=== PATIENT | female | born 1990 | race Caucasian/White ===

== ENCOUNTER 2020-09-28 14:10 | Emergency (ER) | payer OTHER ==
[2020-09-28 14:40] VITALS: BMI 38.9
[2020-09-28 15:42] LABS: PH,URINE 6.5 (5.0-8.0); URINE APPEARANCE CLEAR; URINE BILIRUBIN NEGATIVE (NEGATIVE); URINE COLOR YELLOW; URINE GLUCOSE (UA) NEGATIVE (NEGATIVE); URINE KETONE TRACE (NEGATIVE); URINE LEUK ESTERASE NEGATIVE (NEGATIVE); URINE NITRITE NEGATIVE (NEGATIVE); URINE PROTEIN NEGATIVE (NEGATIVE)
[2020-09-28 15:46] LABS: BASO % 0.3 % (0-2.0); EOS % 0.2 % (0-4.5); HEMATOCRIT 34.7 % (32.4-45.2); HEMOGLOBIN 11.3 GM/dL (10.7-15.3); LYMPH % 9.6 % (8-40); MCH 27.8 pg (25.7-33.7); MCHC 32.6 g/dl (32.0-36.0); MEAN CELL VOLUME 85.2 fl (80-96); MEAN PLT VOLUME 8.3 fl (7.5-11.1); MONO % 2.5 % (3.8-10.2); NEUT % 87.4 % (42.8-82.8); PLATELET COUNT 319 K/MM3 (134-434); RBC 4.07 M/mm3 (3.60-5.2); RDW 14.9 % (11.6-15.6); WHITE BLOOD COUNT 13.9 K/mm3 (4.0-10.0)
[2020-09-28 16:03] LABS: INR 1.11 (0.83-1.09); PROTHROMBIN TIME (PATIENT) 13.4 SEC (9.7-13.0)
[2020-09-28 16:04] LABS: CHLORIDE 105 mmol/L (98-107); POTASSIUM 4.1 mmol/L (3.5-5.1); SODIUM 138 mmol/L (136-145)
[2020-09-28 16:06] LABS: ALBUMIN 3.4 g/dl (3.4-5.0); ANION GAP 9 MMOL/L (8-16); CO2 24 mmol/L (21-32); LIPASE 138 U/L (73-393)
[2020-09-28 16:07] LABS: BLOOD UREA NITROGEN 5.5 mg/dL (7-18); GLUCOSE,RANDOM 77 mg/dL (74-106)
[2020-09-28 16:09] LABS: SGOT/AST 13 U/L (15-37); SGPT/ALT 24 U/L (13-61)
[2020-09-28 16:10] LABS: CREATININE 0.5 mg/dL (0.55-1.3)
[2020-09-28 16:11] LABS: ALK PHOS 122 U/L (45-117); BILIRUBIN,TOTAL 0.2 mg/dL (0.2-1); TOT PROT 7.4 g/dl (6.4-8.2)
[2020-09-28 19:16] VITALS: BP 107/67; PULSE 96; TEMP 98
== END 2020-09-28 18:45 | disposition home or self-care (01) ==
LOC: JER 14:10
DX: K80.20 Calculus of gallbladder without cholecystitis without obstruction (principal)
CPT/HCPCS: 36415; 76705-TC; 76801-TC; 80053; 81003; 82550; 83690; 84484; 85025; 85610; 87086; 99285-25

== ENCOUNTER 2022-01-30 10:07 | Observation (INO) | payer BC, OTHER ==
[2022-01-30 10:16] VITALS: BMI 40.7
[2022-01-30] MEDS ORDERED: SODIUM CHLORIDE 0.9% 500 ML INFUS.BAG IV ONE (11:35)
[2022-01-30] MEDS ORDERED: ONDANSETRON 4 MG/2 ML VIAL IVPUSH ONE (11:35)
[2022-01-30] MEDS ORDERED: morphine CARPU-JECT 4 MG/1 ML DISP.SYRIN IVPUSH ONE (11:35)
[2022-01-30] MEDS ORDERED: ONDANSETRON 4 MG/2 ML VIAL ONE (12:11)
[2022-01-30 13:17] LABS: BASO % 0.4 % (0-2.0); EOS % 0.7 % (0-4.5); HEMATOCRIT 34.6 % (32.4-45.2); LYMPH % 20.7 % (8-40); MCH 24.5 pg (25.7-33.7); MCHC 31.8 g/dl (32.0-36.0); MEAN CELL VOLUME 77.2 fl (80-96); MONO % 4.7 % (3.8-10.2); NEUT % 73.5 % (42.8-82.8); PLATELET COUNT 384 10^3/uL (134-434); RBC 4.48 M/mm3 (3.60-5.2); RDW 16.7 % (11.6-15.6)
[2022-01-30 13:24] LABS: INR 1.18 (0.83-1.09); PROTHROMBIN TIME (PATIENT) 13.6 SEC (9.7-13.0)
[2022-01-30 13:27] LABS: ACTIVATED PTT 37.8 SECONDS (25.2-36.5)
[2022-01-30] MEDS ORDERED: ACETAMINOPHEN 1000 MG/100 ML BAG IVPB ONE (13:38)
[2022-01-30 13:41] LABS: CALCIUM 8.9 mg/dL (8.5-10.1)
[2022-01-30] MEDS ORDERED: ACETAMINOPHEN 1000 MG/100 ML BAG IVPB PRN (13:41)
[2022-01-30 13:42] LABS: BLOOD UREA NITROGEN 10.2 mg/dL (7-18); MAGNESIUM 2.2 mg/dL (1.8-2.4)
[2022-01-30 13:45] LABS: CREATININE 0.8 mg/dL (0.55-1.3)
[2022-01-30 13:46] LABS: TOT PROT 8.2 g/dl (6.4-8.2)
[2022-01-30 13:59] LABS: BILIRUBIN,TOTAL 0.4 mg/dL (0.2-1)
[2022-01-30] MEDS ORDERED: ONDANSETRON 4 MG/2 ML VIAL IVPUSH PRN (14:34)
[2022-01-30 17:24] LABS: PH,URINE 5.5 (5.0-8.0); URINE APPEARANCE CLEAR; URINE BILIRUBIN NEGATIVE (NEGATIVE); URINE COLOR YELLOW; URINE GLUCOSE (UA) NEGATIVE (NEGATIVE); URINE KETONE NEGATIVE (NEGATIVE); URINE LEUK ESTERASE NEGATIVE (NEGATIVE); URINE NITRITE NEGATIVE (NEGATIVE); URINE PROTEIN NEGATIVE (NEGATIVE)
[2022-01-30] MEDS: CEFTRIAXONE 1 GM in DEXTROSE 5%-WATER - 50 ML IVPB SCH (18:01)
[2022-01-30] MEDS ORDERED: PIPERACILLIN/TAZOB 3.375 GM 3.375 GM/50 ML BAG IVPB ONE (18:03)
[2022-01-30] MEDS ORDERED: CEFTRIAXONE 1 GM/50 ML BAG ONE (18:04)
[2022-01-31] MEDS ORDERED: cefTRIAXone SODIUM 1 GM VIAL ONE (09:47)
[2022-01-31] MEDS ORDERED: DEXTROSE 5%-WATER - 50 ML IVPB ONE (09:47)
[2022-01-31] MEDS: CEFTRIAXONE 1 GM in DEXTROSE 5%-WATER - 50 ML IVPB SCH (09:48)
[2022-01-31 11:37] LABS: BASO % 0.6 % (0-2.0); EOS % 0.5 % (0-4.5); HEMOGLOBIN 10.9 GM/dL (10.7-15.3); LYMPH % 17.2 % (8-40); MCH 24.8 pg (25.7-33.7); MCHC 31.9 g/dl (32.0-36.0); MEAN CELL VOLUME 77.6 fl (80-96); MEAN PLT VOLUME 7.8 fl (7.5-11.1); MONO % 4.6 % (3.8-10.2); NEUT % 77.1 % (42.8-82.8); PLATELET COUNT 374 10^3/uL (134-434); RBC 4.38 M/mm3 (3.60-5.2); RDW 16.3 % (11.6-15.6); RETICULOCYTES 1.18 % (0.5-1.5); WHITE BLOOD COUNT 6.1 K/mm3 (4.0-10.0)
[2022-01-31 11:53] LABS: CALCIUM 8.6 mg/dL (8.5-10.1)
[2022-01-31 11:54] LABS: ALBUMIN 3.6 g/dl (3.4-5.0); BLOOD UREA NITROGEN 6.1 mg/dL (7-18)
[2022-01-31 11:57] LABS: CREATININE 0.7 mg/dL (0.55-1.3)
[2022-01-31 11:58] LABS: TOT PROT 7.5 g/dl (6.4-8.2)
[2022-01-31 11:59] LABS: BILIRUBIN,TOTAL 1.6 mg/dL (0.2-1)
[2022-01-31] MEDS ORDERED: DEXAMETHASONE SOD PHOSPHATE 4 MG/1 ML VIAL ONE (13:23)
[2022-01-31] MEDS ORDERED: ONDANSETRON 4 MG/2 ML VIAL ONE (13:23)
[2022-01-31] MEDS ORDERED: LIDOCAINE HCL/PF 2% SDV 5ML VIAL ONE (13:23)
[2022-01-31] MEDS ORDERED: PROPOFOL 20 ML ONE (13:24)
[2022-01-31] MEDS ORDERED: ROCURONIUM BROMIDE 50 MG/5 ML SYRINGE ONE (13:24)
[2022-01-31] MEDS ORDERED: MIDAZOLAM HCL 2 MG/2 ML SINGLE DOSE VIAL ONE (13:24)
[2022-01-31] MEDS ORDERED: BUPIVACAINE HCL/PF 0.5% (5MG/ML) 10 ML VIAL ONE (13:25)
[2022-01-31] MEDS ORDERED: BENZOIN/ALOE VERA/STORAX/TOLU 58 ML BOTTLE ONE (13:26)
[2022-01-31] MEDS ORDERED: BUPIVACAINE HCL/PF 0.5% (5MG/ML) 10 ML VIAL NR ONE ×2 (14:22)
[2022-01-31] MEDS ORDERED: NEOSTIGMINE METHYLSULFATE 0.5 MG/1 ML - 10 ML MDV ONE (15:18)
[2022-01-31] MEDS ORDERED: GLYCOPYRROLATE 0.2 MG/1 ML VIAL ONE (15:19)
[2022-01-31] MEDS ORDERED: KETOROLAC TROMETHAMINE 30 MG/1 ML VIAL ONE (15:19)
[2022-01-31] MEDS ORDERED: ONDANSETRON 4 MG/2 ML VIAL IVPUSH PRN ×3 (15:31→15:51)
[2022-01-31] MEDS ORDERED: oxyCODONE HCL 5 MG TABLET PO PRN ×2 (15:31→16:01)
[2022-01-31] MEDS ORDERED: LACTATED RINGERS SOLUTION 1,000 ML IV SCH (15:45)
[2022-01-31] MEDS ORDERED: ACETAMINOPHEN 325 MG TABLET (FP) PO PRN (15:59)
[2022-01-31] MEDS: LACTATED RINGERS SOLUTION 1,000 ML IV SCH (17:20)
[2022-01-31] MEDS: DOCUSATE SODIUM 100 MG CAPSULE (FP) PO SCH (17:21)
[2022-01-31] MEDS ORDERED: IBUPROFEN 600 MG TABLET (FP) PO PRN (22:00)
[2022-02-01] MEDS: DOCUSATE SODIUM 100 MG CAPSULE (FP) PO SCH ×2 (00:22→10:28)
[2022-02-01] MEDS: oxyCODONE HCL 5 MG TABLET PO PRN ×2 (00:22→06:20)
[2022-02-01] MEDS: LACTATED RINGERS SOLUTION 1,000 ML IV SCH (05:53)
[2022-02-01 08:33] LABS: BASO % 0.1 % (0-2.0); EOS % 0.1 % (0-4.5); HEMATOCRIT 30.5 % (32.4-45.2); MCH 25.4 pg (25.7-33.7); MCHC 32.7 g/dl (32.0-36.0); MEAN CELL VOLUME 77.7 fl (80-96); MEAN PLT VOLUME 7.6 fl (7.5-11.1); MONO % 4.3 % (3.8-10.2); NEUT % 83.5 % (42.8-82.8); PLATELET COUNT 351 10^3/uL (134-434); RBC 3.92 M/mm3 (3.60-5.2); RDW 15.9 % (11.6-15.6); WHITE BLOOD COUNT 10.9 K/mm3 (4.0-10.0)
[2022-02-01 08:50] LABS: BLOOD UREA NITROGEN 9.7 mg/dL (7-18); CALCIUM 8.5 mg/dL (8.5-10.1)
[2022-02-01 08:51] LABS: ALBUMIN 3.2 g/dl (3.4-5.0)
[2022-02-01 08:53] LABS: CREATININE 0.8 mg/dL (0.55-1.3)
[2022-02-01 08:54] LABS: BILIRUBIN,TOTAL 0.8 mg/dL (0.2-1)
[2022-02-01 08:55] LABS: TOT PROT 6.8 g/dl (6.4-8.2)
[2022-02-01 14:16] VITALS: BP 108/43; PULSE 73; TEMP 98.1
== END 2022-02-01 16:40 | disposition home or self-care (01) ==
LOC: JER 10:07 → JERBED 12:26 → J6S 22:45
PROVIDERS: ADMIT Internal Medicine; ATTEND Internal Medicine
PROC: 3E033NZ Introduction of Analgesics, Hypnotics, Sedatives into Peripheral Vein, Percutaneous Approach (ICD-10-PCS; principal; 2022-01-30)
PROC: 3E03329 Introduction of Other Anti-infective into Peripheral Vein, Percutaneous Approach (ICD-10-PCS; 2022-01-30)
PROC: 3E033NZ Introduction of Analgesics, Hypnotics, Sedatives into Peripheral Vein, Percutaneous Approach (ICD-10-PCS; 2022-01-30)
PROC: 3E0337Z Introduction of Electrolytic and Water Balance Substance into Peripheral Vein, Percutaneous Approach (ICD-10-PCS; 2022-01-30)
PROC: 3E033GC Introduction of Other Therapeutic Substance into Peripheral Vein, Percutaneous Approach (ICD-10-PCS; 2022-01-30)
PROC: 0FT44ZZ Resection of Gallbladder, Percutaneous Endoscopic Approach (ICD-10-PCS; 2022-01-30)
DX: K80.10 Calculus of gallbladder with chronic cholecystitis without obstruction (principal); E66.01 Morbid (severe) obesity due to excess calories; Z68.41 Body mass index [BMI] 40.0-44.9, adult
CPT/HCPCS: 36415; 71045-TC-FY; 76705-TC; 80053; 81003; 82728; 83540; 83550; 83605; 83690; 83735; 84703; 85025; 85045; 85610; 85730; 86850; 86900; 86901; 87086; 88304-TC; 93005; 93010; 94760; 96361; 96365; 96367; 96375; 96376; 99285-25; C9803-CS; G0378; U0003; U0005

== ENCOUNTER 2022-02-04 19:35 | Inpatient (IN) | payer BC ==
[2022-02-04 19:55] VITALS: BMI 40.7
[2022-02-04] MEDS ORDERED: SODIUM CHLORIDE 0.9% 500 ML INFUS.BAG IV ONE (20:40)
[2022-02-04] MEDS ORDERED: ACETAMINOPHEN 1000 MG/100 ML BAG IVPB ONE (20:40)
[2022-02-04] MEDS ORDERED: METOCLOPRAMIDE HCL INJECTION 10 MG/2 ML VIAL IVPB ONE (20:40)
[2022-02-04] MEDS ORDERED: ACETAMINOPHEN INJECTION 100 ML IVPB ONE (20:49)
[2022-02-04] MEDS ORDERED: METOCLOPRAMIDE HCL INJECTION 10 MG/2 ML VIAL ONE (20:49)
[2022-02-04 21:58] LABS: BASO % 0.6 % (0-2.0); EOS % 1.3 % (0-4.5); HEMATOCRIT 33.3 % (32.4-45.2); HEMOGLOBIN 11.1 GM/dL (10.7-15.3); LYMPH % 19.4 % (8-40); MCH 25.8 pg (25.7-33.7); MCHC 33.3 g/dl (32.0-36.0); MEAN CELL VOLUME 77.5 fl (80-96); MEAN PLT VOLUME 7.2 fl (7.5-11.1); MONO % 4.4 % (3.8-10.2); NEUT % 74.3 % (42.8-82.8); PLATELET COUNT 408 10^3/uL (134-434); RDW 16.9 % (11.6-15.6); WHITE BLOOD COUNT 6.9 K/mm3 (4.0-10.0)
[2022-02-04 22:34] LABS: BLOOD UREA NITROGEN 5.3 mg/dL (7-18); CALCIUM 9.5 mg/dL (8.5-10.1)
[2022-02-04 22:37] LABS: CREATININE 0.7 mg/dL (0.55-1.3)
[2022-02-04 22:39] LABS: BILIRUBIN,TOTAL 3.7 mg/dL (0.2-1); TOT PROT 8.4 g/dl (6.4-8.2)
[2022-02-04 22:44] LABS: ALBUMIN 4.2 g/dl (3.4-5.0)
[2022-02-04 23:17] LABS: BILIRUBIN,DIRECT 3.3 mg/dL (0.0-0.2)
[2022-02-04] MEDS ORDERED: CEFTRIAXONE 2,000 MG in DEXTROSE 5%-WATER - 50 ML IVPB ONE (23:57)
[2022-02-05] MEDS ORDERED: CEFTRIAXONE 2 GM/100 ML BAG IVPB ONE (00:10)
[2022-02-05 00:55] LABS: INR 1.15 (0.83-1.09); PROTHROMBIN TIME (PATIENT) 13.2 SEC (9.7-13.0)
[2022-02-05 00:58] LABS: ACTIVATED PTT 45.4 SECONDS (25.2-36.5)
[2022-02-05] MEDS: SODIUM CHLORIDE 1,000 ML IV SCH ×2 (02:15→18:35)
[2022-02-05 08:51] LABS: BASO % 0.5 % (0-2.0); EOS % 1.3 % (0-4.5); HEMATOCRIT 31.8 % (32.4-45.2); HEMOGLOBIN 10.2 GM/dL (10.7-15.3); LYMPH % 18.9 % (8-40); MCH 25.4 pg (25.7-33.7); MCHC 32.1 g/dl (32.0-36.0); MEAN PLT VOLUME 7.9 fl (7.5-11.1); MONO % 5.5 % (3.8-10.2); NEUT % 73.8 % (42.8-82.8); PLATELET COUNT 377 10^3/uL (134-434); RBC 4.02 M/mm3 (3.60-5.2); RDW 16.6 % (11.6-15.6); WHITE BLOOD COUNT 5.1 K/mm3 (4.0-10.0)
[2022-02-05 09:08] LABS: CALCIUM 8.9 mg/dL (8.5-10.1)
[2022-02-05 09:09] LABS: BLOOD UREA NITROGEN 3.2 mg/dL (7-18); MAGNESIUM 2.3 mg/dL (1.8-2.4)
[2022-02-05 09:12] LABS: CREATININE 0.6 mg/dL (0.55-1.3)
[2022-02-05 09:13] LABS: ACTIVATED PTT 43.1 SECONDS (25.2-36.5); BILIRUBIN,TOTAL 3.9 mg/dL (0.2-1); INR 1.13 (0.83-1.09); TOT PROT 6.7 g/dl (6.4-8.2)
[2022-02-05 09:20] LABS: ALBUMIN 3.3 g/dl (3.4-5.0)
[2022-02-05] MEDS: METOCLOPRAMIDE HCL INJECTION 10 MG/2 ML VIAL IVPUSH PRN ×3 (10:35→22:12)
[2022-02-05] MEDS ORDERED: MELATONIN 5 MG TABLETS PO PRN (16:19)
[2022-02-06] MEDS: SODIUM CHLORIDE 1,000 ML IV SCH (02:21)
[2022-02-06 08:12] LABS: BASO % 0.5 % (0-2.0); EOS % 0.3 % (0-4.5); HEMOGLOBIN 10.7 GM/dL (10.7-15.3); LYMPH % 11.6 % (8-40); MCH 25.3 pg (25.7-33.7); MCHC 32.3 g/dl (32.0-36.0); MEAN CELL VOLUME 78.5 fl (80-96); MEAN PLT VOLUME 7.9 fl (7.5-11.1); MONO % 3.2 % (3.8-10.2); NEUT % 84.4 % (42.8-82.8); PLATELET COUNT 414 10^3/uL (134-434); RDW 16.8 % (11.6-15.6); WHITE BLOOD COUNT 9.5 K/mm3 (4.0-10.0)
[2022-02-06 08:21] LABS: ALBUMIN 3.7 g/dl (3.4-5.0); CALCIUM 8.9 mg/dL (8.5-10.1)
[2022-02-06 08:22] LABS: BLOOD UREA NITROGEN 7.9 mg/dL (7-18)
[2022-02-06 08:25] LABS: CREATININE 0.5 mg/dL (0.55-1.3)
[2022-02-06 08:26] LABS: BILIRUBIN,TOTAL 1.4 mg/dL (0.2-1); TOT PROT 7.6 g/dl (6.4-8.2)
[2022-02-06] MEDS ORDERED: cefTRIAXone SODIUM 1 GM VIAL ONE ×2 (09:06→09:27)
[2022-02-06] MEDS ORDERED: DEXTROSE 5%-WATER - 50 ML IVPB ONE ×2 (09:07→09:27)
[2022-02-06] MEDS: FERROUS SO4 325 MG TABLET (FP) PO SCH (09:10)
[2022-02-06] MEDS: CEFTRIAXONE 1 GM in DEXTROSE 5%-WATER - 50 ML IVPB SCH (09:10)
[2022-02-06] MEDS ORDERED: INDOMETHACIN 50 MG RECTAL SUPPOSITORY PR ONE ×2 (09:56→10:58)
[2022-02-06] MEDS: METOCLOPRAMIDE HCL INJECTION 10 MG/2 ML VIAL IVPUSH PRN (10:05)
[2022-02-06] MEDS ORDERED: MIDAZOLAM HCL 2 MG/2 ML SINGLE DOSE VIAL ONE (10:20)
[2022-02-06] MEDS ORDERED: IOHEXOL 300 MG/ML INFUS..BTL IJ ONE (11:18)
[2022-02-06] MEDS ORDERED: LACTATED RINGERS SOLUTION 1,000 ML/1,000 ML INFUS.BAG IV SCH (11:30)
[2022-02-06] MEDS: LACTATED RINGERS SOLUTION 1,000 ML/1,000 ML INFUS.BAG IV SCH ×2 (17:58→23:43)
[2022-02-07] MEDS: LACTATED RINGERS SOLUTION 1,000 ML/1,000 ML INFUS.BAG IV SCH ×2 (05:10→16:21)
[2022-02-07 07:18] LABS: ALBUMIN 3.3 g/dl (3.4-5.0)
[2022-02-07 07:19] LABS: BLOOD UREA NITROGEN 10.3 mg/dL (7-18); CALCIUM 8.7 mg/dL (8.5-10.1)
[2022-02-07 07:22] LABS: BASO % 0.4 % (0-2.0); EOS % 0.2 % (0-4.5); HEMATOCRIT 29.2 % (32.4-45.2); HEMOGLOBIN 9.5 GM/dL (10.7-15.3); LYMPH % 15.3 % (8-40); MCH 25.7 pg (25.7-33.7); MCHC 32.6 g/dl (32.0-36.0); MEAN CELL VOLUME 78.8 fl (80-96); MEAN PLT VOLUME 7.8 fl (7.5-11.1); MONO % 5.1 % (3.8-10.2); PLATELET COUNT 352 10^3/uL (134-434); RBC 3.71 M/mm3 (3.60-5.2); RDW 16.9 % (11.6-15.6); WHITE BLOOD COUNT 9.6 K/mm3 (4.0-10.0)
[2022-02-07 07:23] LABS: BILIRUBIN,DIRECT 0.6 mg/dL (0.0-0.2); CREATININE 0.5 mg/dL (0.55-1.3); TOT PROT 6.4 g/dl (6.4-8.2)
[2022-02-07] MEDS ORDERED: DEXTROSE 5%-WATER - 50 ML IVPB ONE (09:33)
[2022-02-07] MEDS ORDERED: cefTRIAXone SODIUM 1 GM VIAL ONE (09:33)
[2022-02-07] MEDS: CEFTRIAXONE 1 GM in DEXTROSE 5%-WATER - 50 ML IVPB SCH (09:57)
[2022-02-07] MEDS: FERROUS SO4 325 MG TABLET (FP) PO SCH (10:57)
[2022-02-07] MEDS: BENZOCAINE/MENTH/CETYLPYRD CL 1 EACH LOZENGE MM PRN (13:51)
[2022-02-08] MEDS: LACTATED RINGERS SOLUTION 1,000 ML/1,000 ML INFUS.BAG IV SCH ×2 (00:46→15:19)
[2022-02-08] MEDS: BENZOCAINE/MENTH/CETYLPYRD CL 1 EACH LOZENGE MM PRN (00:47)
[2022-02-08] MEDS: FERROUS SO4 325 MG TABLET (FP) PO SCH (09:27)
[2022-02-08 10:08] LABS: BASO % 0.7 % (0-2.0); HEMATOCRIT 33.8 % (32.4-45.2); HEMOGLOBIN 10.7 GM/dL (10.7-15.3); LYMPH % 16.5 % (8-40); MCH 25.3 pg (25.7-33.7); MCHC 31.7 g/dl (32.0-36.0); MEAN CELL VOLUME 79.7 fl (80-96); MEAN PLT VOLUME 8.5 fl (7.5-11.1); MONO % 2.7 % (3.8-10.2); NEUT % 79.1 % (42.8-82.8); PLATELET COUNT 389 10^3/uL (134-434); RBC 4.24 M/mm3 (3.60-5.2); RDW 17.1 % (11.6-15.6); WHITE BLOOD COUNT 7.5 K/mm3 (4.0-10.0)
[2022-02-08 11:01] LABS: ALBUMIN 3.8 g/dl (3.4-5.0)
[2022-02-08 11:04] LABS: CREATININE 0.8 mg/dL (0.55-1.3)
[2022-02-08 11:05] LABS: BILIRUBIN,TOTAL 0.7 mg/dL (0.2-1); TOT PROT 7.4 g/dl (6.4-8.2)
[2022-02-08 14:26] VITALS: BP 133/67; PULSE 100; TEMP 98.4
== END 2022-02-08 17:47 | disposition home or self-care (01) | DRG 252 ==
LOC: JER 19:35 → JERBED 23:54 → J6S 02-05 02:54
PROVIDERS: ADMIT Hospitalist; ATTEND Internal Medicine
PROC: 0FC98ZZ Extirpation of Matter from Common Bile Duct, Via Natural or Artificial Opening Endoscopic (ICD-10-PCS; principal; 2022-02-06 12:45)
DX: K91.86 Retained cholelithiasis following cholecystectomy (principal); R16.0 Hepatomegaly, not elsewhere classified; K76.0 Fatty (change of) liver, not elsewhere classified; R79.89 Other specified abnormal findings of blood chemistry; Y83.8 Other surgical procedures as the cause of abnormal reaction of the patient, or of later complication, without mention of misadventure at the time of the procedure; R10.11 Right upper quadrant pain; R94.5 Abnormal results of liver function studies
CPT/HCPCS: 36415; 74181-TC; 76000-TC-FY; 76705-TC; 80048; 80053; 80076; 82150; 82248; 83690; 83735; 84100; 84703; 85025; 85610; 85730; 86140; 86850; 86900; 86901; 87804; 93005; 93010; 99285-25; C9803-CS; U0003; U0005

== ENCOUNTER 2024-03-11 21:30 | Emergency (ER) | payer BC, OTHER ==
[2024-03-11 21:44] VITALS: BP 141/90; PULSE 88; RESP 18; TEMP 98.2; BMI 40.7
[2024-03-11] MEDS ORDERED: ACETAMINOPHEN 325 MG TABLET (FP) ONE (22:06)
[2024-03-11] MEDS ORDERED: BACITRACIN ZINC 15 GM TUBE TOPICAL OINTMENT ONE (22:10)
[2024-03-11] MEDS: ACETAMINOPHEN 325 MG TABLET (FP) PO ONE (22:19)
[2024-03-11] MEDS: BACITRACIN 0.9 GM PACKET TP ONE (22:20)
[2024-03-11] MEDS ORDERED: oxyCODONE HCL 5 MG TABLET ONE (22:26)
[2024-03-11] MEDS: oxyCODONE HCL 5 MG TABLET PO ONE (22:31)
== END 2024-03-11 23:09 | disposition home or self-care (01) ==
LOC: JER 21:30
DX: T23.201A Burn of second degree of right hand, unspecified site, initial encounter (principal); X15.3XXA Contact with hot saucepan or skillet, initial encounter; Y93.G3 Activity, cooking and baking
CPT/HCPCS: 99283-25